=== PATIENT | male | born 1985 | race Caucasian/White ===

== ENCOUNTER 2024-02-25 13:47 | Emergency (ER) | payer OTHER, SELFPAY ==
[2024-02-25 13:51] VITALS: BP 123/71; PULSE 66; TEMP 36.4; O2SAT 100; BMI 25.8
--- NOTE | 2024-02-25 13:55 | ED.GENADUL1 ---
HPI HPI - General Adult General Chief complaint: Back Pain/Injury Stated complaint: ABDOMINAL PAIN Time Seen by Provider: 02/25/24 13:48 History of Present Illness HPI narrative: Patient is a 38-year-old male who presents to the emergency department by ambulance for evaluation of flank pain for the last 3 to 4 days. He was working on a roof when the pain became much more severe. He reports pain in the right thoracic back and right lateral rib cage. He denies any fevers, chills, cough, congestion. EMS started IV fluids through an IV. Patient has not been vomiting or having diarrhea. He denies urinary symptoms. 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 He is primarily Vietnamese-speaking. He denies any medical history, he does not take any medications. History and physical were obtained using an roll wrapper through hospital interpretation service. Related Data Previous Rx's ?Medication ?Instructions ?Recorded ketorolac 10 mg tablet 10 mg PO TID PRN pain #10 tabs 02/25/24 orphenadrine citrate 100 mg 100 mg PO BID PRN muscle pain #14 02/25/24 tablet,extended release tabs Allergies Allergy/AdvReac Type Severity Reaction Status Date / Time No Known Drug Allergies Allergy Verified 02/25/24 13:50 Opioid HPI Opioid Management Most Recent Opioid Data: Last Pain Scale 8 02/25/24 14:11 Review of Systems ROS Constitutional Denies: fever or chills Ears, nose, mouth, and throat Denies: throat pain or nasal congestion Cardiovascular Denies: chest pain Respiratory Denies: shortness of breath or cough Gastrointestinal Denies: nausea, vomiting or diarrhea Genitourinary Denies: painful urination Musculoskeletal Reports: back pain; Denies: neck pain or extremity pain Integumentary/Breast Denies: rash Neurological Denies: headache Hematologic/Lymphatic Denies: easy bruising or easy bleeding Exam Narrative Exam Narrative: Gen.: Awake, alert, in no distress Head: Normocephalic, atraumatic ENT: Moist mucous membranes Respiratory: No respiratory distress, lungs clear bilaterally; Posterior right thoracic tenderness with no rashes appreciated. Cardio: Regular rate and rhythm Gastrointestinal: Abdomen is soft, nondistended and nontender to palpation; No CVA tenderness Extremities: Moves extremities equally Psych: Normal mood and affect Neuro: No focal neuro deficit Skin: Warm, dry, intact Constitutional Vital Signs, click to edit/add: Last Vital Signs Temp 97.6 F 02/25/24 13:51 Pulse 54 L 02/25/24 16:13 Resp 18 02/25/24 16:13 BP 106/65 02/25/24 16:13 Pulse Ox 100 02/25/24 16:13 O2 Del Method Room Air 02/25/24 13:51 Course Vital Signs Vital signs: Vital Signs Temperature 97.6 F 02/25/24 13:51 Pulse Rate 66 02/25/24 13:51 Respiratory Rate 18 02/25/24 13:51 Blood Pressure 123/71 02/25/24 13:51 Pulse Oximetry 100 02/25/24 13:51 Oxygen Delivery Method Room Air 02/25/24 13:51 Temperature 97.6 F 02/25/24 13:51 Pulse Rate 54 L 02/25/24 16:13 Respiratory Rate 18 02/25/24 16:13 Blood Pressure 106/65 02/25/24 16:13 Pulse Oximetry 100 02/25/24 16:13 Oxygen Delivery Method Room Air 02/25/24 13:51 Medical Decision Making MDM Narrative Medical decision making narrative: Patient was treated with 0.5 mg IV Dilaudid, 30 mg IV Toradol and 60 mg IV Norflex with almost complete resolution of his pain. He is resting much more comfortably. D-dimer is within normal limits so chest x-ray and CT of the abdomen and pelvis was obtained with no evidence of acute abnormalities. Patient's vital signs remained stable in the ER and he is discharged home with symptomatic treatment for suspected musculoskeletal pain. Reevaluated by attending physician prior to discharge. Medical Records Medical records reviewed: Yes I reviewed the patient's medical records Lab Data Lab results reviewed: Yes I reviewed the patient's lab results Labs: Lab Results 02/25/24 02/25/24 Range/Units 14:20 15:28 WBC 9.0 (4.0-11.0) 10^3/uL RBC 4.64 L (4.70-6.10) 10^6/uL Hgb 14.4 (14.0-18.0) g/dL Hct 43.0 (42.0-54.0) % MCV 92.7 (80.0-94.0) fL MCH 31.0 (25.9-34.0) pg MCHC 33.5 (29.9-35.2) g/dL RDW 13.0 (11.0-15.0) % Plt Count 264 (150-450) 10^3/uL MPV 9.9 (9.5-13.5) fL Neut % (Auto) 60.5 (43.0-75.0) % Lymph % (Auto) 29.7 (20.5-60.0) % [place] % (Auto) 7.7 (1.7-12.0) % Eos % (Auto) 0.9 (0.9-7.0) % Baso % (Auto) 0.9 (0.2-2.0) % Neut # (Auto) 5.5 (1.4-6.5) 10^3/uL Lymph # (Auto) 2.7 (1.2-3.8) 10^3/uL [place] # (Auto) 0.7 (0.3-0.8) 10^3/uL Eos # (Auto) 0.1 (0.0-0.7) 10^3/uL Baso # (Auto) 0.1 (0.0-0.1) 10^3/uL Abs Immat Gran (auto) 0.03 (0.00-0.03) 10^3/uL Imm/Tot Granulo (auto) 0.3 (0.0-0.5) % PT 11.4 (9.0-11.6) sec INR 1.08 D-Dimer 0.44 (<=0.59) mg/L FEU Sodium 139 (136-145) mmol/L Potassium 3.6 (3.5-5.1) mmol/L Chloride 104 (98-107) mmol/L Carbon Dioxide 24.9 (21.0-32.0) mmol/L Anion Gap 13.7 BUN 17.0 (7.0-18.0) mg/dL Creatinine 1.00 (0.70-1.30) mg/dL Est GFR ( Amer) >60 (>=60) Est GFR (Non-Af Amer) >60 (>=60) BUN/Creatinine Ratio 17.0 Glucose 73 L (74-106) mg/dL Lactate 2.4 H* (0.4-2.0) mmol/L Calcium 9.2 (8.5-10.1) mg/dL Total Bilirubin 0.5 (0.2-1.0) mg/dL AST 23 (15-37) U/L ALT 27 (16-63) U/L Alkaline Phosphatase 80 (46-116) U/L Troponin I High Sens 19.7 (4.0-76.1) pg/mL Total Protein 7.5 (6.4-8.2) g/dL Albumin 4.1 (3.4-5.0) g/dL Globulin 3.4 g/dL Albumin/Globulin Ratio 1.2 Lipase 31.0 (16.0-77.0) U/L Urine Color Yellow (YELLOW) Urine Clarity Clear (CLEAR) Urine pH 6.5 (5.0-9.0) Ur Specific [place] 1.020 (1.005-1.025) Urine Protein Negative (NEG/TRACE) mg/dL Urine Glucose (UA) Negative (NEGATIVE) mg/dL Urine Ketones Trace A (NEGATIVE) mg/dL Urine Occult Blood Negative (NEGATIVE) Urine Nitrite Negative (NEGATIVE) Urine Bilirubin Negative (NEGATIVE) Urine Urobilinogen 1.0 (0.2-1.0) EU/dL Ur Leukocyte Esterase Negative (NEGATIVE) Imaging Data Chest x-ray: Attestation: I have reviewed the pertinent imaging results. Radiologist's impression: ITS Impressions Abdomen/Pelvis CT 02/25/24 14:51 IMPRESSION: 1. No urinary tract calculi or obstructive uropathy. 2. No acute or suspicious findings to account for patient's symptoms. Electronically authenticated by: KAIT DOTSON Date: 02/25/2024 16:11 Chest X-Ray 02/25/24 14:51 IMPRESSION: No acute cardiopulmonary process. Electronically authenticated by: KARLOS BARGER Date: 02/25/2024 15:25 ECG Data Attestation: I personally reviewed and interpreted this ECG as follows: (Normal sinus rhythm at a rate of 75, no acute ST elevation or ectopy. EKG reviewed by attending physician) Discharge Plan Discharge Stand Alone Forms: Portal Instructions Chief Complaint: Back Pain/Injury Clinical Impression: Acute right flank pain Patient Disposition: Home, Self-Care Time of Disposition Decision: 16:15 Condition: Good Prescriptions / Home Meds: New ketorolac 10 mg tablet 10 mg PO TID PRN (Reason: pain) Qty: 10 0RF orphenadrine citrate 100 mg tablet extended release 100 mg PO BID PRN (Reason: muscle pain) Qty: 14 0RF Print Language: Vietnamese Instructions: Flank Pain (ED) Referrals: Physician,Non-Staff, MD [Primary Care Provider] - 1 week
[2024-02-25] MEDS: HYDROMORPHONE HCL 1 MG/ML CARTRIDGE 0.5 MG IVP (14:02)
[2024-02-25] MEDS: KETOROLAC TROMETHAMINE 30 MG/ML VIAL IVP (14:03)
[2024-02-25] MEDS: ORPHENADRINE 60 MG/ 2 ML VIAL IV (14:03)
[2024-02-25] MEDS: ONDANSETRON PF 4 MG/2 ML VIAL IV (14:03)
[2024-02-25] MEDS: 0.9 % SODIUM CHLORIDE 1,000 ML 999 ML IV (14:06)
[2024-02-25 14:19] VITALS: PULSE 75
[2024-02-25 14:31] LABS: Basophils Absolute Auto 0.1 10^3/uL (0.0-0.1); Basophils Percent Auto 0.9 % (0.2-2.0); Eosinophils Absolute Auto 0.1 10^3/uL (0.0-0.7); Eosinophils Percent Auto 0.9 % (0.9-7.0); Hemoglobin 14.4 g/dL (14.0-18.0); Immature Granulocytes Abs Auto 0.03 10^3/uL (0.00-0.03); Immature Granulocytes Pct Auto 0.3 % (0.0-0.5); Lymphocytes Absolute Auto 2.7 10^3/uL (1.2-3.8); Lymphocytes Percent Auto 29.7 % (20.5-60.0); Mean Corpuscular HGB Conc 33.5 g/dL (29.9-35.2); Mean Corpuscular Volume 92.7 fL (80.0-94.0); Mean Platelet Volume 9.9 fL (9.5-13.5); Monocytes Absolute Auto 0.7 10^3/uL (0.3-0.8); Monocytes Percent Auto 7.7 % (1.7-12.0); Neutrophils Absolute Auto 5.5 10^3/uL (1.4-6.5); Neutrophils Percent Auto 60.5 % (43.0-75.0); Platelet Count 264 10^3/uL (150-450); Red Blood Count 4.64 10^6/uL (4.70-6.10)
[2024-02-25 14:46] LABS: D Dimer 0.44 mg/L FEU (<=0.59); INR 1.08; Prothrombin Time 11.4 sec (9.0-11.6)
[2024-02-25 14:48] LABS: Alanine Aminotransferase 27 U/L (16-63); Albumin Globulin Ratio 1.2; Albumin Level 4.1 g/dL (3.4-5.0); Alkaline Phosphatase 80 U/L (46-116); Anion Gap 13.7; Aspartate Amino Transferase 23 U/L (15-37); Bilirubin Total 0.5 mg/dL (0.2-1.0); Calcium 9.2 mg/dL (8.5-10.1); Carbon Dioxide 24.9 mmol/L (21.0-32.0); Chloride 104 mmol/L (98-107); Estimated GFR (African America >60 (>=60); Estimated GFR (Non-African Ame >60 (>=60); Globulin 3.4 g/dL; Glucose 73 mg/dL (74-106); Potassium 3.6 mmol/L (3.5-5.1); Sodium 139 mmol/L (136-145); Total Protein 7.5 g/dL (6.4-8.2); Troponin I High Sensitivity 19.7 pg/mL (4.0-76.1)
--- NOTE | 2024-02-25 14:51 | CT_ITS ---
[address] [address] Patient Name: TRISTIAN GARCIA MRN: [id number] date: 1985 Sex: M Assigned Patient Location: ER Current Patient Location: Accession/Order Number: [id number] Exam Date: 02/25/2024 15:38 Report Date: 02/25/2024 16:11 At the request of: ELENA NOE Procedure: CT abdomen pelvis wo con EXAMINATION: CT abdomen pelvis wo con HISTORY: Right flank pain COMPARISON: No relevant comparison available. TECHNIQUE: Axial, Coronal, and Sagittal images were obtained without and/or with IV contrast as indicated by examination type. Dose reduction techniques were achieved by using automated exposure control and/or adjustment of mA and/or kV according to patient size and/or use of iterative reconstruction technique. FINDINGS: LUNG BASES: No visible pulmonary or pleural disease. LIVER: No enlargement, atrophy, suspicious density, or significant focal lesion. BILIARY: No dilatation or calcification. PANCREAS: No lesion, fluid collection, or abnormal duct dilatation. SPLEEN: No enlargement or focal lesion. ADRENALS: No mass or enlargement. KIDNEYS: No mass, obstruction, or calcification. BOWEL/MESENTERY: No visible mass, obstruction, or bowel wall thickening. Appendix is difficult to separate from adjacent bowel, but I suspect is normal. No free air or free fluid. AORTA/VASCULAR: No aneurysm or dissection. RETROPERITONEUM: No mass or adenopathy. LYMPH NODES: No adenopathy. URINARY BLADDER: No visible focal wall thickening, lesion, or calculus. PELVIC ORGANS: No visible mass. Pelvic organs appropriate for patient age. ABDOMINAL WALL: No mass or hernia. BONES: No bony lesion or fracture. OTHER: Negative. CT/CT abdomen pelvis wo con IMPRESSION: 1. No urinary tract calculi or obstructive uropathy. 2. No acute or suspicious findings to account for patient's symptoms. Electronically authenticated by: KAIT DOTSON Date: 02/25/2024 16:11
--- NOTE | 2024-02-25 14:51 | XR_ITS ---
[address] [address] Patient Name: TRISTIAN GARCIA MRN: [id number] date: 1985 Sex: M Assigned Patient Location: ER Current Patient Location: ER Accession/Order Number: [id number] Exam Date: 02/25/2024 15:00 Report Date: 02/25/2024 15:25 At the request of: ELENA NOE Procedure: XR chest 1V EXAMINATION: XR chest 1V, , 02/25/2024 3:00 PM EDT INDICATION: Right flank pain HISTORY: Ordering Provider Reason for Exam: Right flank pain Technologist Note: Additional: COMPARISON: None. TECHNIQUE: Chest x-ray: One view. FINDINGS: No pneumothorax, pleural effusion or focal airspace consolidation. Heart is normal in size. Bony thorax is unremarkable. XR/XR chest 1V IMPRESSION: No acute cardiopulmonary process. Electronically authenticated by: KARLOS BARGER Date: 02/25/2024 15:25
[2024-02-25 14:52] LABS: Lactate/Lactic Acid 2.4 mmol/L (0.4-2.0)
[2024-02-25 15:49] LABS: Bilirubin Urine NEGATIVE (NEGATIVE); Blood Urine NEGATIVE (NEGATIVE); Clarity Urine CLEAR (CLEAR); Color Urine YELLOW (YELLOW); Glucose Urine UA NEGATIVE (NEGATIVE); Ketones Urine TRACE mg/dL (NEGATIVE); Leukocyte Esterase Urine NEGATIVE (NEGATIVE); Nitrite Urine NEGATIVE (NEGATIVE); Protein Urine NEGATIVE (NEG/TRACE); pH Urine 6.5 (5.0-9.0)
[2024-02-25 15:51] LABS: Urine Microscopic Indicated NO
[2024-02-25 16:13] VITALS: BP 106/65; PULSE 54; O2SAT 100
== END 2024-02-25 16:28 | disposition home or self-care (01) ==
PROVIDERS: Physician Assistant; Emergency Provider Emergency Medicine
DX: R10.9 Unspecified abdominal pain (principal)
CPT/HCPCS: 36415; 71045; 74176; 80053; 81003; 83605; 83690; 84484; 85025; 85378; 85610; 96361; 96374; 96375; 99285; J1170